=== PATIENT | male | born 1975 | race Two or more races ===

== ENCOUNTER 2017-06-16 16:15 | Emergency (ER) | payer SELFPAY ==
[~2017-06-16] VITALS: Ht 172.7 cm; Wt 102.1 kg
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
[2017-06-16] MEDS ORDERED: ROBAXIN500 MG PO (16:50)
[2017-06-16] MEDS ORDERED: LIDODERM700 M1 TOPIC (16:50)
[2017-06-16 17:23] VITALS: BP 154/87
== END 2017-06-16 17:23 | disposition home or self-care (01) ==
LOC: EMR 16:47
DX: S16.1XXA Strain of muscle, fascia and tendon at neck level, initial encounter (principal); V43.52XA Car driver injured in collision with other type car in traffic accident, initial encounter; Y92.410 Unspecified street and highway as the place of occurrence of the external cause
CPT/HCPCS: 99284